=== PATIENT | female | born 1990 ===

== ENCOUNTER 2018-01-03 14:30 | Inpatient (IN) | payer OTHER ==
[~2018-01-03] VITALS: Ht 157.5 cm; Wt 59.4 kg
[~2018-01-03 14:30] MED LIST: ALLEGRA ALLERG180 MG PO; GILTUSS TR TAB1 EACH PO; GUMSOL SPRAY30 ML MM; NEXIUM2.5 MG
[2018-01-21] MEDS ORDERED: PRENATAL TABLE1 EAC1 PO (02:36)
[2018-01-21] MEDS ORDERED: COLACE100 MG PO (02:36)
[2018-01-21] MEDS ORDERED: IRON18 MG PO (02:37)
== END 2018-01-23 14:03 | disposition home or self-care (01) | DRG 775 ==
LOC: LDR 01-21 00:25 → SURG-SUITE 01-21 00:25 → LDR 01-24 14:30
PROC: 10E0XZZ Delivery of Products of Conception, External Approach (ICD-10-PCS; principal; 2018-01-21)
PROC: 0W8NXZZ Division of Female Perineum, External Approach (ICD-10-PCS; 2018-01-21)
PROC: 4A1HXCZ Monitoring of Products of Conception, Cardiac Rate, External Approach (ICD-10-PCS; 2018-01-21)
DX: O80 Encounter for full-term uncomplicated delivery (principal); Z3A.39 39 weeks gestation of pregnancy; Z37.0 Single live birth

== ENCOUNTER → 2020-07-16 | Outpatient (CLI) | payer OTHER ==
[~2020-07-16] MED LIST changes: +COLACE100 MG PO; +IRON18 MG PO; +PRENATAL TABLE1 EAC1 PO
== END | disposition home or self-care (01) ==
LOC: PRENATAL 10:30
PROVIDERS: ATTEND Obstetrics & Gynecology Maternal & Fetal Medicine
DX: Z36.89 Encounter for other specified antenatal screening (principal); O36.80X1 Pregnancy with inconclusive fetal viability, fetus 1; Z3A.10 10 weeks gestation of pregnancy

== ENCOUNTER → 2020-09-17 | Outpatient (CLI) | payer OTHER | END | disposition home or self-care (01) | LOC: PRENATAL 08:00 | PROVIDERS: ATTEND Obstetrics & Gynecology Maternal & Fetal Medicine | DX: O35.0XX1 Maternal care for (suspected) central nervous system malformation in fetus, fetus 1 (principal); O35.3XX1 Maternal care for (suspected) damage to fetus from viral disease in mother, fetus 1; O98.512 Other viral diseases complicating pregnancy, second trimester; Z36.89 Encounter for other specified antenatal screening; Z3A.19 19 weeks gestation of pregnancy ==

== ENCOUNTER 2020-11-03 17:15 | Outpatient (CLI) | payer OTHER | END 2020-11-03 23:26 | disposition home or self-care (01) | LOC: OBS/DEL 17:15 | PROVIDERS: ATTEND Obstetrics & Gynecology | DX: O60.02 Preterm labor without delivery, second trimester (principal); Z3A.26 26 weeks gestation of pregnancy ==

== ENCOUNTER → 2020-11-12 | Outpatient (CLI) | payer OTHER | END | disposition home or self-care (01) | LOC: PRENATAL 09:00 | PROVIDERS: ATTEND Obstetrics & Gynecology Maternal & Fetal Medicine | DX: O26.842 Uterine size-date discrepancy, second trimester (principal); Z36.89 Encounter for other specified antenatal screening; Z3A.27 27 weeks gestation of pregnancy ==

== ENCOUNTER 2021-01-05 20:00 | Inpatient (IN) | payer OTHER ==
[~2021-01-05] VITALS: Ht 154.9 cm; Wt 58.5 kg
== END 2021-01-07 13:56 | disposition home or self-care (01) | DRG 833 ==
LOC: LDR 20:00
PROVIDERS: ADMIT Student in an Organized Health Care Education/Training Program; ATTEND Student in an Organized Health Care Education/Training Program
PROC: 4A1HXFZ Monitoring of Products of Conception, Cardiac Rhythm, External Approach (ICD-10-PCS; principal; 2021-01-05)
DX: O60.03 Preterm labor without delivery, third trimester (principal); O24.410 Gestational diabetes mellitus in pregnancy, diet controlled; Z3A.35 35 weeks gestation of pregnancy

== ENCOUNTER 2021-01-22 04:03 | Inpatient (IN) | payer OTHER ==
[~2021-01-22] VITALS: Ht 154.9 cm; Wt 57.2 kg
== END 2021-01-24 10:28 | disposition home or self-care (01) | DRG 807 ==
LOC: OB/GYN 04:03 → LDR 04:03 → OB/GYN 07:32
PROVIDERS: ADMIT Student in an Organized Health Care Education/Training Program; ATTEND Student in an Organized Health Care Education/Training Program
PROC: 10E0XZZ Delivery of Products of Conception, External Approach (ICD-10-PCS; principal; 2021-01-22)
PROC: 0HQ9XZZ Repair Perineum Skin, External Approach (ICD-10-PCS; 2021-01-22)
PROC: 4A1HXFZ Monitoring of Products of Conception, Cardiac Rhythm, External Approach (ICD-10-PCS; 2021-01-22)
DX: O24.420 Gestational diabetes mellitus in childbirth, diet controlled (principal); O70.0 First degree perineal laceration during delivery; Z37.0 Single live birth; O99.824 Streptococcus B carrier state complicating childbirth; O26.893 Other specified pregnancy related conditions, third trimester; Z67.41 Type O blood, Rh negative; Z3A.38 38 weeks gestation of pregnancy

== ENCOUNTER 2024-07-07 08:09 | Outpatient (CLI) | payer OTHER | END 2024-07-07 08:15 | disposition home or self-care (01) | LOC: RAD 08:09 | DX: M54.6 Pain in thoracic spine (principal); M79.18 Myalgia, other site ==

== ENCOUNTER 2025-01-09 07:53 | Outpatient (CLI) | payer OTHER | END 2025-01-09 07:56 | disposition home or self-care (01) | LOC: RAD 07:53 | DX: M25.552 Pain in left hip (principal) ==